=== PATIENT | male | born 1985 | race Caucasian/White ===

== ENCOUNTER 2019-02-18 21:46 | Emergency (ER) | payer BC ==
[~2019-02-18] VITALS: Ht 162.6 cm; Wt 89.5 kg
[2019-02-18 21:54] VITALS: Ht 162.6 cm; Wt 89.5 kg
[2019-02-18] MEDS ORDERED: ONDANSETRON 4 MG INJ IV STA (22:18)
[2019-02-18] MEDS ORDERED: SOD CHLORIDE 0.9% 1,000 ML IV STA (22:18)
[2019-02-18] MEDS ORDERED: KETOROLAC 15 MG INJ IV STA (22:18)
--- NOTE | 2019-02-18 22:35 | ERD ---
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 The patient does not endorse any dysuria or hematuria or urgency or frequency. That said, the patient notes that that this is a similar pain that he had when he had a kidney stone several years ago. The patient does not endorse any constipation or diarrhea. He does not endorse any black or bloody or tarry stools. He does not endorse any nausea or vomiting. The patient denies feeling sick recently. The patient denies fever or chills. The patient has had no headache or vision changes. The patient does not endorse neck or back pain. The patient denies lightheadedness or dizziness. The patient has had no chest pain or trouble breathing. The patient has had no focal deficits. The patient has had no weakness or numbness or tingling to the face or extremities. ROS All systems reviewed and are negative except as per history of present illness. Allergies Allergies: Coded Allergies: No Known Allergy (Unverified , 02/18/19) PMhx/Soc History of Surgery: Yes (L testicular when 2 yr old) Anesthesia Reaction: No Hx Neurological Disorder: No Hx Respiratory Disorders: No Hx Cardiac Disorders: No Hx Psychiatric Problems: No Hx Miscellaneous Medical Probl: Yes (Kidney stones) Hx Alcohol Use: Yes (occasional) Hx Substance Use: No Hx Tobacco Use: Yes Smoking Status: Current every day smoker FmHx Family History: No diabetes Physical Exam Vitals Vital Signs Date Temp Pulse Resp B/P (MAP) Pulse Ox O2 O2 Flow FiO2 Time Delivery Rate 02/18/19 97.1 80 20 137/94 100 21:54 (108) Physical Exam Const: No apparent distress, well-developed, well-nourished Head: Normocephalic, Atraumatic Eyes: Normal Conjunctiva. Extraocular movements intact. Pupils equal, round and reactive to light ENT: Normal External Ears, Nose and Mouth. Neck: Full range of motion. No meningismus. Resp: Clear to auscultation bilaterally, No wheezes, rales or rhonchi Cardio: Regular rate and rhythm. No murmurs, rubs or gallops Abd: Soft, non distended. Mild left groin discomfort without exquisite tenderness. No rebound or guarding. Normal bowel sounds : Very mild left testicular edema. No exquisite tenderness. Normal epididymis. Normal right testicle. Skin: No petechiae or rashes Back: No midline tenderness. No CVA tenderness. Ext: No cyanosis, or edema Neur: Awake and alert, oriented 4. Cranial nerves intact. No facial droop. Normal strength, sensation and coordination. Psych: Normal Mood and Affect Result Diagram: 02/18/19224902/18/192249 Results 24 hrs Laboratory Tests Test 02/18/19 22:05 02/18/19 22:18 02/18/19 22:50 Urine Color STRAW Urine Clarity CLEAR Urine pH 7.0 Urine Specific Stow 1.009 Urine Ketones NEGATIVE mg/dL Urine Nitrite NEGATIVE mg/dL Urine Bilirubin NEGATIVE mg/dL Urine Urobilinogen NEGATIVE mg/dL Urine Leukocyte Esterase TRACE Xiomara/ul Urine Microscopic RBC 1 /HPF Urine Microscopic WBC 4 /HPF Urine Hemoglobin NEGATIVE mg/dL Urine Glucose NEGATIVE mg/dL Urine Total Protein NEGATIVE mg/dl Bedside Urine pH (LAB) 7.0 Bedside Urine Protein (LAB) Negative Bedside Urine Glucose (UA) Negative Bedside Urine Ketones (LAB) Negative Bedside Urine Blood Negative Bedside Urine Nitrite (LAB) Negative Bedside Urine Leukocyte Esterase Trace (L White Blood Count 8.0 10^3/ul Red Blood Count 5.11 10^6/ul Hemoglobin 14.3 g/dl Hematocrit 42.5 % Mean Corpuscular Volume 83.2 fl Mean Corpuscular Hemoglobin 28.0 pg Mean Corpuscular 33.6 g/dl Hemoglobin Concent Red Cell Distribution Width 12.6 % Platelet Count 223 10^3/UL Mean Platelet Volume 9.7 fl Immature Granulocytes % 0.500 % Neutrophils % 51.4 % Lymphocytes % 35.1 % Monocytes % 8.6 % Eosinophils % 3.8 % Basophils % 0.6 % Nucleated Red Blood Cells % 0.0 /100WBC Immature Granulocytes # 0.040 10^3/ul Neutrophils # 4.1 10^3/ul Lymphocytes # 2.8 10^3/ul Monocytes # 0.7 10^3/ul Eosinophils # 0.3 10^3/ul Basophils # 0.1 10^3/ul Nucleated Red Blood Cells # 0.0 10^3/ul Sodium Level 140 mmol/L Potassium Level 4.0 mmol/L Chloride Level 104 mmol/L Carbon Dioxide Level 27 mmol/L Anion Gap 9 Blood Urea Nitrogen 19 mg/dl Creatinine 0.87 mg/dl Est Glomerular Filtrat > 60 mL/min Rate mL/min Glucose Level 99 mg/dl Calcium Level 9.4 mg/dl Total Bilirubin 0.5 mg/dl Direct Bilirubin 0.00 mg/dl Indirect Bilirubin 0.5 mg/dl Aspartate Amino 30 IU/L Transf (AST/SGOT) Alanine 47 IU/L Aminotransferase (ALT/SGPT) Alkaline Phosphatase 45 IU/L Total Protein 7.1 g/dl Albumin 4.3 g/dl Globulin 2.80 g/dl Albumin/Globulin Ratio 1.53 Current Medications Medications Dose Sig/Clara Start Time Status Last (Trade) Ordered Route PRN Stop Time Admin Dose Reason Admin Sodium 1,000 ml @ Q1H STAT 02/18/19 DC 02/18/19 Chloride 1,000 mls/hr IV 22:18 22:34 02/18/19 23:17 Ondansetron 4 mg ONCE STAT 02/18/19 DC 02/18/19 HCl (Zofran IV 22:18 22:34 Inj) 02/18/19 22:20 Ketorolac 15 mg ONCE STAT 02/18/19 DC 02/18/19 Tromethamine IV 22:18 22:35 (Toradol) 02/18/19 22:20 Procedures/MDM MDM The patient's presentation warrants further investigation. Previous medical records, if available, were reviewed. LABS The patient's laboratory testing was obtained and reviewed. No emergent treatment was required unless described below. CBC: No E/o systemic infection or severe anemia or thrombocytopenia Chemistry: No E/o severe acidosis or alkalosis or renal failure or liver disease or diabetic ketoacidosis Urine: No E/o acute infection or hematuria IMAGING Imaging and Radiology interpretation reviewed. US Scrotum FINDINGS: The right testicle is well visualized and has a normal echotexture. The right testicle measures 3.8 x 8-0.6 x 1.7 cm. There is normal blood flow on color-flow imaging. Doppler arterial waveforms are normal. The right epididymis is visualized and unremarkable in appearance. There is no evidence of hyperemia on color flow imaging. The left testicle is well visualized and has a normal echotexture.The left testicle measures 4 x 1 by 2.8 x 2.1 cm. There is normal testicular blood flow on color flow imaging. Doppler arterial waveforms are normal. The left epididymis is visualized and is unremarkable in appearance. Blood flow is normal on color-flow imaging. The scrotal wall is unremarkable, without swelling or edema. No other incidental abnormality is identified. There is no significant fluid around either testicle. IMPRESSION: Unremarkable testicular ultrasound. Electronically viewed and signed by Physician Richard on 02/19/2019 00:49 TREATMENT/DISPOSITION The patient presents for left-sided flank and groin pain. The patient's work-up is unremarkable. I do not see evidence of a testicular pathology. I doubt orchitis or epididymitis. I do not suspect testicular torsion. There is no evidence of urinary infection. There is no evidence of renal disease. There is no hematuria. I do not suspect nephrolithiasis. In speaking to the patient again, the patient admits to no full sexual activity, but the patient does endorse increased sexual stimulation by his partner without completion to ejaculation. Epididymal hypertension is certainly a possibility. I do feel the patient may follow-up in an outpatient setting with his primary care physician. The patient was treated with IV fluids, Toradol and Zofran. DISCHARGE Upon reevaluation of the patient, symptoms have improved. No emergent diagnoses were identified. At this time, I feel that the patient stable for discharge. The patient was instructed to follow-up with a primary care physician in 1-3 days. The patient will be given strict precautions with which to return to the emergency department. Prescriptions: Ibuprofen The patient's blood pressure was elevated at greater than 120/80 while in the emergency department. The patient was otherwise stable with no evidence of hypertensive urgency or emergency. The patient does not require admission for blood pressure control. I have discussed with the patient the risks of hypertension. I have instructed the patient to return to the ER for any new or worsening symptoms including chest pain, shortness of breath, headache, blurred vision, confusion, nausea, vomiting or LOC. I have advised the patient to follow up with the primary care physician for outpatient monitoring and treatment for hypertension in 1-3 days. Disclaimer: Inadvertent spelling and grammatical errors are likely due to EHR/dictation software use and do not reflect on the overall quality of patient care. Note that the electronic time recorded on this note does not necessarily reflect the actual time of the patient encounter. Departure Diagnosis: Primary Impression: Left groin pain Additional Impressions: Flank pain Testicular pain, left Condition: Stable Patient Instructions: Flank Pain, Uncertain Cause, Testicular Pain, Unclear Cause Additional Instructions: Thank you for for coming to [facility] for your care today. Please ask your nurse or provider if you have questions about your care today and do not leave until all your questions have been answered. Please use any medications given as directed and follow-up with your doctor (or the doctor you were referred to) in the next 1-3 days. If you do not have a primary care doctor you may follow up at the [facility] [place] or [facility] (listed below). You may also use motrin and tylenol as needed for fever and/or pain unless in structed otherwise by your provider or nurse. Indications for more urgent follow-up have been discussed, but you may return to the Emergency Department at ANY time for any worrisome or worsening symptoms. If you have abdominal pain, please know that no test or exam you received is perfect and you should follow up within 8 hours for continued pain. If you had any imaging studies today, such as an X-Ray or CT Scan, these studies will be reviewed later by a radiologist. You will be called if there are important findings that were not identified today, so make sure the contact information you provided at registration is correct. If you received any narcotic pain control medicine today, such as Vicodin, Morphine or Dilaudid, your coordination and judgment may be affected for a number of hours. Please do not drive or operate heavy machinery, and you may want someone to assist you at home. If you were given a prescription for narcotic medication, be aware that it is very addictive- use sparingly and only if necessary. PLEASE SEEK FURTHER EVALUATION AND MANAGEMENT AT YOUR DOCTORS OFFICE WITHIN THE NEXT 1-3 DAYS. IT IS YOUR RESPONSIBILITY TO MAKE AN APPOINTMENT FOR FOLOW-UP CARE. IF YOU HAVE A PRIMARY DOCTOR, PLEASE CALL THEIR OFFICE TO SCHEDULE AN APPOINTMENT FOR FOLLOW UP. IF YOU DO NOT HAVE A PRIMARY DOCTOR YOU CAN CALL OUR PHYSICIAN REFERRAL HOTLINE AT IF YOU CAN NOT AFFORD TO SEE A PHYSICIAN YOU CAN CHOSE FROM THE FOLLOWING [facility]: [facility] [address] [facility] [address] [facility] [address] [facility] [address] [facility] [address] [facility] [facility]. [address] ZEHRA VERGARA MD Feb 18, 2019 22:35
[2019-02-19] MEDS ORDERED: IBUP-1542 PO (00:58)
[2019-02-19 01:48] VITALS: BP 128/72; PULSE 69; RESP 16
== END 2019-02-19 01:49 | disposition home or self-care (01) ==
LOC: E/R 21:46
DX: N50.812 Left testicular pain (principal); R10.32 Left lower quadrant pain; F17.210 Nicotine dependence, cigarettes, uncomplicated
CPT/HCPCS: 36415; 76870; 80053; 81001; 85025; 96374; 96375; 99285; J1885; J2405; J7030; 81003